=== PATIENT | male | born 1965 | race Caucasian/White ===

== ENCOUNTER 2017-05-21 21:45 | Emergency (ER) | payer SELFPAY ==
[~2017-05-21] VITALS: Ht 167.6 cm; Wt 97.3 kg
[2017-05-21 21:49] VITALS: TEMP 36.4; Ht 167.6 cm; Wt 97.3 kg
[2017-05-21] MEDS ORDERED: MECLIZINE HCL 25 MG TAB PO STA (22:05)
[2017-05-21] MEDS ORDERED: ONDANSETRON 4MG OD TAB PO STA (22:05)
[2017-05-21] MEDS ORDERED: ONDA4TAB10 SL (22:09)
[2017-05-21] MEDS ORDERED: ANT25 PO (22:09)
--- NOTE | 2017-05-21 22:10 | EMERGENCY ROOM VISIT NOTE ---
History Report prepared by Daveibmike: Royce Gallo Under the Supervision of: Dr. Osman Moise D.O. First contact with patient: 21:53 Chief Complaint: DIZZY Stated Complaint: DIZZINESS AND UPSET STOMACH History of Present Illness The patient is a 51 year old male who presents to the Emergency Room with complaints of intermittent episodes of dizziness beginning a few weeks ago. The patient describes his dizziness as a sensation of "spinning". He has been seen in the [facility] for his symptoms and was told that his symptoms were thought to be related to his inner ear. He had blood work, a head CT, and an ECG while at [facility]. The patient also complains of nausea. Nothing has improved his symptoms. Source of History: patient Onset: A few weeks ago Quality: other (dizziness) Timing: intermittent, other (episodes) Modifying Factors (Worsening): other (none) Associated Symptoms: + nausea Review of Systems See HPI for pertinent positives and negatives. A total of ten systems were reviewed and were otherwise negative. Past Medical & Surgical Medical Problems: (1) No Known Active Medical Problems Family History No pertinent family history stated. Social History Smoking Status: Current Every Day Smoker Allergies Coded Allergies: No Known Allergies (Unverified , 05/21/17) Physical Exam Vital Signs Date Time Temp Pulse Resp B/P (MAP) Pulse Ox O2 Delivery O2 Flow Rate FiO2 05/21/17 21:49 36.4 96 18 161/108 95 Room Air Physical Exam GENERAL: Awake, alert, well-appearing, in no distress HENT: Normocephalic, atraumatic. Oropharynx unremarkable. EYES: Normal conjunctiva. Sclera non-icteric. NECK: Supple. No nuchal rigidity. FROM. No JVD. RESPIRATORY: Clear to auscultation. CARDIAC: Regular rate, normal rhythm. Extremities warm and well perfused. Pulses equal. ABDOMEN: Soft, non-distended. No tenderness to palpation. No rebound or guarding. No masses. RECTAL: Deferred. MUSCULOSKELETAL: Chest examination reveals no tenderness. The back is symmetrical on inspection without obvious abnormality. There is no CVA tenderness to palpation. No joint edema. LOWER EXTREMITIES: Calves are equal size bilaterally and non-tender. No edema. No discoloration. NEURO: Normal sensorium. No sensory or motor deficits noted. SKIN: No rash or jaundice noted. Medical Decision & Procedures ED Course 4708: The patient was evaluated in room C8. A complete history and physical exam was performed. Medical Decision Differential diagnoses include but are not limited to; dizziness, benign positional vertigo, labyrinthitis, and inner ear infection. Patient had evaluation at [facility] had a CT of his brain which was negative lab work which was normal. Patient was placed on amoxicillin as well as Decadron. Continues to have occasional vertigo. Patient will be treated symptomatically with meclizine and Zofran. I do not suspect a TIA or stroke at this time. Due to the patient received a full workup the past 2 days needs strict follow-up with primary care physician Impression Primary Impression: Dizziness Scribe Attestation The scribe's documentation has been prepared under my direction and personally reviewed by me in its entirety. I confirm that the note above accurately reflects all work, treatment, procedures, and medical decision making performed by me. Departure Information Dispostion Home / Self-Care Prescriptions Ondasetron Odt (ZOFRAN ODT) 4 Mg Tab 4 MG SL Q6H for Nausea, #6 TAB Prov: Osman Moise, DO 05/21/17 Meclizine HCl (Meclizine HCl) 25 Mg Tab 25 MG PO Q6H, #14 CAP Prov: Osman Moise, DO 05/21/17 Referrals No Doctor, Assigned (PCP) Patient Instructions Dizziness Vertigo Inner Ear, My [facility]
[2017-05-21] MEDS ORDERED: MECLIZINE HCL 25MG HOME PACK PO ONE (22:15)
[2017-05-21] MEDS ORDERED: OMEG10007 PO (22:35)
[2017-05-21] MEDS ORDERED: ATOR-24 PO (22:35)
[2017-05-21] MEDS ORDERED: ASPI81TA28 PO (22:35)
[2017-05-21] MEDS ORDERED: METF500T5 PO (22:35)
[2017-05-21] MEDS ORDERED: LSN40 PO (22:35)
[2017-05-21] MEDS ORDERED: MULT-506 PO (22:35)
[2017-05-21 23:04] VITALS: BP 158/111; PULSE 94; O2SAT 95
== END 2017-05-21 23:04 | disposition home or self-care (01) ==
LOC: C.EDB 21:49 → C.EDC 23:04
DX: R42 Dizziness and giddiness (principal); F17.200 Nicotine dependence, unspecified, uncomplicated